=== PATIENT | male | born 1970 | race Caucasian/White ===

== ENCOUNTER 2016-03-05 05:08 | Emergency (ER) | payer OTHER, BC ==
[~2016-03-05] VITALS: Ht 180.3 cm; Wt 71.8 kg
--- OUTSIDE RECORDS SUMMARY | 2016-03-05 05:19 | XMS REPORT | Summary of Care ---
Author Author Judah Johnson M.D. Organization Unknown Address Unknown Phone Unavailable Care Team Providers Care [employer] Name Role Phone Juana Johnson M.D. Unavailable Unavailable No Assigned PCP-Pt Confirmed Unavailable Unavailable Unavailable Unavailable Functional Status Name Dates Details Functional status health issues are not documented Status: Name Dates Details Cognitive status health issues are not documented Status: Problems Name Dates Details Hematuria (599.70, R31.9) Status: Active Medications Name Dates Details Ciprofloxacin HCl - 500 MG Oral Tablet TAKE 1 TABLET TWICE DAILY. Quantity: 14 Refills: 0 Judah Johnson M.D. Start 01-Mar-2016 End 08-Mar-2016 Active Tamsulosin HCl - 0.4 MG Oral Capsule flomax o0.4 mg po q day for 7 days. Quantity: 7 Refills: 0 Judah Johnson M.D. Start 01-Mar-2016 End 08-Mar-2016 Active Ketorolac Tromethamine 10 MG Oral Tablet TAKE 1 TABLET 3 TIMES DAILY NEEDED FOR PAIN. Quantity: 15 Refills: 0 Judah Johsnon M.D. Start 01-Mar-2016 Active Ondansetron 8 MG Oral Tablet Dispersible one tab po q 6 prn nausea or vomiting. Quantity: 20 Refills: 0 Judah Johnson M.D. 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 Procedures Procedure Dates Details History of Lithotripsy Procedures not documented Immunization Name Dates Details Immunizations not documented Family History Name Dates Details Family history of Known health problems: none (V49.89, Z78.9) Status: Active Name Dates Details Family history of malignant neoplasm of urinary bladder (V16.52, Z80.52) Status: Active Social History Name Dates Details Unknown if ever smoked Vital Signs Date Test Result Details 01-Mar-2016 09:32 BP Systolic 132 mm[Hg] Status: Comments: Location: ; Position: BP Diastolic 92 mm[Hg] Status: Comments: Location: ; Position: Temperature 98.1 f Status: Comments: Method: Heart Rate 95 /min Status: Comments: Location: ; Weight 158 lb Status: Physical Findings 99 Status: Comments: O2 Saturation Results Date Description Value Details 01-Mar-2016 10:16 Urinalysis, Reflex to Microscopic or Culture PRN [id number] Comments: Specimen color may be causing inaccurate chemistry resultsSDC pH 6.0 Range: 5.0-7.5 SP GRAVITY 1.020 Range: 1.010-1.030 APPEARANCE TURBID (Abnormal) Range: Clear COLOR RED (Abnormal) Range: Straw-Yellow PROTEIN 100 mg/dL (Abnormal) Range: Negative-Trace GLUCOSE NEGATIVE mg/dL Range: Negative KETONE 15 mg/dL (Abnormal) Range: Negative BILIRUB MODERATE (Abnormal) Range: Negative BLOOD LARGE (Abnormal) Range: Negative UROBIL 1.0 EU/dL Range: 0.2-1.0 NITRITE POSITIVE (Abnormal) Range: Negative Comments: Specimen referred to Reference Lab for Culture----- LEUK MODERATE (Abnormal) Range: Negative 10:16 Urine Microscopic UMIC Comments: Microscopic results obtained on unconcentrated urine due to the amount of cells WBC 3-5 /HPF Range: 0-5 RBC TNTC /HPF (Abnormal) Range: 0-2 U YEAST Present (Abnormal) Range: Absent Plan of Care Name Dates Details Planned Observations Planned Goals not documented Interventions Provided Medication ChangesCiprofloxacin HCl - 500 MG Oral Tablet - StartKetorolac Tromethamine 10 MG Oral Tablet - StartOndansetron 8 MG Oral Tablet Dispersible - StartTamsulosin HCl - 0.4 MG Oral Capsule - StartLabs/Procedures/ ImagingUrinalysis, Reflex to Microscopic or Culture PRN [id number]; Done: Mar 01 2016 9:25AM Instructions Name Dates Details Instructions not documented Encounters Appointment; Judah Johnson M.D. Encounter Diagnosis: Problem not documented On 01-Mar-2016 09:14
[2016-03-05] MEDS ORDERED: TRM50T PO (05:27)
[2016-03-05] MEDS ORDERED: TAMS-8 PO (05:27)
[2016-03-05] MEDS ORDERED: LIDOCAINE 1% (XYLOCAINE) 20 ML VIAL INJ ONE (05:50)
[2016-03-05] MEDS ORDERED: TETANUS, DIPTHERIA, PERTUSSIS (ADACELL) VACCINE 0.5 ML VIAL IM ONE (05:50)
[2016-03-05 06:23] VITALS: BP 139/98
== END 2016-03-05 06:30 | disposition home or self-care (01) ==
LOC: ED 05:15
DX: S61.210A Laceration without foreign body of right index finger without damage to nail, initial encounter (principal); W26.0XXA Contact with knife, initial encounter; Y92.63 Factory as the place of occurrence of the external cause; Y99.0 Civilian activity done for income or pay
CPT/HCPCS: 12001; 90471; 90715; 99282; 99283

== ENCOUNTER → 2016-03-05 | Outpatient (REF) ==
[~2016-03-05] MED LIST: TAMS-8 PO; TRM50T PO
== END ==
LOC: EUOP 05:25
PROVIDERS: ATTEND Emergency Medicine
DX: Z02.89 Encounter for other administrative examinations (principal); Z02.83 Encounter for blood-alcohol and blood-drug test